=== PATIENT | female | born 1995 | race Two or more races ===

== ENCOUNTER 2017-10-24 09:00 | Emergency (ER) | payer MEDICAID ==
[~2017-10-24] VITALS: Ht 160 cm; Wt 50.8 kg
[2017-10-24 12:06] VITALS: BP 120/83
== END 2017-10-24 12:12 | disposition home or self-care (01) ==
LOC: ER 09:00
DX: J02.9 Acute pharyngitis, unspecified (principal); F12.10 Cannabis abuse, uncomplicated